=== PATIENT | female | born 1955 | race African-American/Black ===

== ENCOUNTER 2016-09-30 18:21 | Emergency (ER) | payer OTHER ==
[2016-09-30 18:36] VITALS: BP 130/68; PULSE 108; BMI 37.3
[2016-09-30] MEDS ORDERED: ACETAMINOPHEN 325 MG TABLET (FP) PO ONE ×2 (18:38→19:20)
--- NOTE | 2016-09-30 19:20 | PDOC ---
History of Present Illness <Leslie Meadows - Last Filed: 09/30/16 20:42> - History of Present Illness Initial Comments: 09/30/16 20:51 The patient is a 60 year old female with a past medical hx of hypertension who presents to the ED complaining of fever and nausea for a few days. She states she had an episode of vomiting, but denies any abdominal pain. She notes her entire family is sick with similar symptoms. The patient denies cough, SOB, chest pain The patient denies dysuria, frequency Allergies:NKDA Social:Nonsmoker Surgical:None reported PCP: Dr. Michael Montague <Zandra Quintanilla - Last Filed: 09/30/16 20:53> - General Chief Complaint: Blood Pressure Problem Stated Complaint: BP PROBLEM Time Seen by Provider: 09/30/16 19:19 Past History - Past Medical History HTN: Yes - Psycho/Social/Smoking Cessation Hx Anxiety: No Suicidal Ideation: No Smoking Status: No Smoking History: Never smoked Number of Cigarettes Smoked Daily: 0 Hx Alcohol Use: No Drug/Substance Use Hx: No Substance Use Type: None <Leslie Meadows Ami - Last Filed: 09/30/16 20:42> <Zandra Quintanilla - Last Filed: 09/30/16 20:53> - Past Medical History Allergies/Adverse Reactions: Allergies Allergy/AdvReac Type Severity Reaction Status Date / Time No Known Allergies Allergy Verified 09/30/16 18:36 Home Medications: Ambulatory Orders Unobtainable Home Med List 0 dose .ROUTE UTDICT 07/02/13 Naproxen [Naprosyn -] 500 mg PO BID PRN #14 tablet MDD 2 09/08/16 Review of Systems - Review of Systems Able to Perform ROS?: Yes Comments:: 09/30/16 20:52 CONSTITUTIONAL: +Fever. Absent: chills, diaphoresis, generalized weakness, malaise, loss of appetite HEENT: Absent: rhinorrhea, nasal congestion, throat pain, throat swelling, difficulty swallowing, mouth swelling, ear pain, eye pain, visual Changes CARDIOVASCULAR: Absent: chest pain, syncope, palpitations, irregular heart rate, lightheadedness , peripheral edema RESPIRATORY: Absent: cough, shortness of breath, dyspnea with exertion, orthopnea, wheezing, stridor, hemoptysis GASTROINTESTINAL: +Nausea, vomiting. Absent: abdominal pain, abdominal distension, diarrhea, constipation, melena, hematochezia GENITOURINARY: Absent: dysuria, frequency, urgency, hesitancy, hematuria, flank pain, genital pain MUSCULOSKELETAL: Absent: myalgia, arthralgia, joint swelling SKIN: Absent: rash, itching, pallor NEUROLOGIC: Absent: headache, focal weakness or paresthesias, dizziness, unsteady gait, seizure, mental status changes, bladder or bowel incontinence PSYCHIATRIC: Absent: anxiety, depression, suicidal or homicidal ideation, hallucinations. <DwightZandra - Last Filed: 09/30/16 20:53> *Physical Exam - Vital Signs Last Vital Signs Temp Pulse Resp BP Pulse Ox 101.2 F H 108 H 20 130/68 95 09/30/16 18:34 09/30/16 18:34 09/30/16 18:34 09/30/16 18:34 09/30/16 18:34 <Leslie Meadows - Last Filed: 09/30/16 20:42> - Vital Signs Last Vital Signs Temp Pulse Resp BP Pulse Ox 97.9 F 108 H 20 130/68 95 09/30/16 20:37 09/30/16 18:34 09/30/16 18:34 09/30/16 18:34 09/30/16 18:34 - Physical Exam Comments: 09/30/16 20:53 GENERAL: Well developed, well nourished. Awake and alert. No acute distress. HEENT: Normocephalic, atraumatic. PERRLA, EOMI. No conjunctival pallor. Sclera are non- icteric. Moist mucous membranes. Oropharynx is clear. NECK: Supple. Full ROM. No JVD. Carotid pulses 2+ and symmetric, without bruits. No thyromegaly. No lymphadenopathy. CARDIOVASCULAR: +Tachycardic. Regular rhythm. No murmurs, rubs, or gallops. Distal pulses are 2 + and symmetric. PULMONARY: No evidence of respiratory distress. Lungs clear to auscultation bilaterally. No wheezing, rales or rhonchi. ABDOMINAL: Soft. Non-tender. Non-distended. No rebound or guarding. No organomegaly. Normoactive bowel sounds. MUSCULOSKELETAL Normal range of motion at all joints. No bony deformities or tenderness. No CVA tenderness. EXTREMITIES: No cyanosis. No clubbing. No edema. No calf tenderness. SKIN: Warm and dry. Normal capillary refill. No rashes. No jaundice. NEUROLOGICAL: Alert, awake, appropriate. Cranial nerves 2-12 intact. No deficits to light touch and temperature in face, upper extremities and lower extremities. No motor deficits in the in face, upper extremities and lower extremities. Normoreflexic in the upper and lower extremities. Normal speech. PSYCHIATRIC: Cooperative. Good eye contact. Appropriate mood and affect. <Zandra Quintanilla - Last Filed: 09/30/16 20:53> ED Treatment Course - Medications Given in the ED: ED Medications Discontinued Medications Generic Name Dose Route Start Last Admin Trade Name Freq PRN Reason Stop Dose Admin Acetaminophen 650 mg 09/30/16 18:38 09/30/16 18:38 Tylenol - PO 09/30/16 18:39 650 mg NOW ONE Administration <Leslie Meadows - Last Filed: 09/30/16 20:42> - ADDITIONAL ORDERS Additional order review: 09/30/16 19:21 Influenza Types A,B Antigen (CHARLES) - Final Nasopharyngeal Swab - Final - Medications Given in the ED: ED Medications Discontinued Medications Generic Name Dose Route Start Last Admin Trade Name Freq PRN Reason Stop Dose Admin Acetaminophen 650 mg 09/30/16 18:38 09/30/16 18:38 Tylenol - PO 09/30/16 18:39 650 mg NOW ONE Administration Acetaminophen 650 mg 09/30/16 19:20 09/30/16 19:21 Tylenol - PO 09/30/16 19:21 Not Given ONCE ONE <Zandra Quintanilla - Last Filed: 09/30/16 20:53> *DC/Admit/Observation/Transfer <Leslie Meadows - Last Filed: 09/30/16 20:42> - Attestations Scribe Attestion: 09/30/16 20:52 Documentation prepared by Zandra Quintanilla, acting as medical records custodian for Leslie Meadows MD/DO. <Zandra Quintanilla - Last Filed: 09/30/16 20:53> Diagnosis at time of Disposition: Fever Qualifiers: Fever type: other Qualified Code(s): R50.81 - Fever presenting with conditions classified elsewhere Vomiting Qualifiers: Vomiting type: unspecified Vomiting Intractability: non-intractable Nausea presence: unspecified Qualified Code(s): R11.10 - Vomiting, unspecified - Discharge Dispostion Disposition: HOME Condition at time of disposition: Stable - Referrals Referrals: Michael Montague MD [Primary Care Provider] - - Patient Instructions Printed Discharge Instructions: DI for Fever (Symptom) -- Adult, DI for Vomiting -- Adult
[2016-09-30 20:38] VITALS: TEMP 97.9
== END 2016-09-30 21:04 | disposition home or self-care (01) ==
LOC: JER 18:21
DX: R11.10 Vomiting, unspecified (principal); I10 Essential (primary) hypertension
CPT/HCPCS: 87804; 99281-25

== ENCOUNTER → 2017-10-24 | Day surgery (SDC) | payer OTHER ==
--- NOTE | 2017-10-25 16:36 | PATH ---
Cytology Non-Gynecological Report Patient Name: GLORIA CASTRO [facility]. Rec. #: [id number] /Age/Gender: 1955 (Age: 61) / F Account: [id number] Location: RADIOLOGY Taken: 10/24/2017 Received: 10/24/2017 Reported: 10/25/2017 Physicians: Michael Licea M.D. Randall Owen, M.D. Specimen(s) Received THYROID FNA Clinical History Right thyroid nodule 1.32 x 1.03 x 0.87 cm Final Diagnosis THYROID, RIGHT, FINE NEEDLE ASPIRATION: SATISFACTORY FOR EVALUATION. BETHESDA CLASS II: BENIGN. CYTOLOGIC FINDINGS ARE CONSISTENT WITH A BENIGN FOLLICULAR NODULE. FEW FOLLICULAR CELLS WITH FOCAL METAPLASTIC CHANGE AND SCANT COLLOID PRESENT. Electronically Signed Betty Torres M.D. Gross Description Received are eight direct smears, four of which are air-dried and Diff-Quik stained, and four of which are alcohol fixed and Pap stained. Also received is 20 ml of bloody formalin from which one cellblock is prepared.
== END | disposition home or self-care (01) ==
LOC: JRADIR 09:36
PROVIDERS: ATTEND Otolaryngology Facial Plastic Surgery
PROC: 0G923ZX Drainage of Left Adrenal Gland, Percutaneous Approach, Diagnostic (ICD-10-PCS; principal; 2017-10-24)
DX: E04.1 Nontoxic single thyroid nodule (principal)
CPT/HCPCS: 10022; 76942; 88173; 88305-TC

== ENCOUNTER 2020-08-16 06:03 | Day surgery (SDC) | payer OTHER ==
[2020-08-15 12:44] VITALS: BMI 38.4
[2020-08-16] MEDS ORDERED: SUCCINYLCHOLINE CHLORIDE 200 MG/10 ML SYRINGE ONE (10:36)
[2020-08-16] MEDS ORDERED: MIDAZOLAM HCL 2 MG/2 ML SINGLE DOSE VIAL ONE (10:36)
[2020-08-16] MEDS ORDERED: PROPOFOL 20 ML ONE ×2 (10:36)
[2020-08-16] MEDS ORDERED: LIDOCAINE 1%/EPI 1:100000 (50 ML MULTI DOSE VIAL) ONE (10:37)
[2020-08-16] MEDS ORDERED: VASOPRESSIN 20 UNITS/ML VIAL IV ONE (10:37)
[2020-08-16] MEDS ORDERED: ceFAZolin SODIUM 1 GM VIAL IVPB ONE (11:15)
[2020-08-16] MEDS ORDERED: LIDOCAINE 1%/EPI 1:100000 (20 ML MULTI DOSE VIAL) IJ ONE (11:25)
[2020-08-16] MEDS ORDERED: ELECTROLYTE-148 SOLN 1,000 ML IV SCH (11:45)
[2020-08-16] MEDS ORDERED: ONDANSETRON 4 MG/2 ML VIAL IVPUSH PRN (12:34)
[2020-08-16] MEDS ORDERED: oxyCODONE HCL 5 MG TABLET PO PRN ×2 (12:34)
[2020-08-16] MEDS ORDERED: LACTATED RINGERS SOLUTION 1,000 ML IV SCH (12:45)
[2020-08-16 13:35] VITALS: TEMP 96.4
[2020-08-16] MEDS ORDERED: oxyCODONE HCL 5 MG TABLET PO ONE (13:36)
[2020-08-16] MEDS ORDERED: oxyCODONE HCL 5 MG TABLET ONE (13:38)
[2020-08-16 14:47] VITALS: BP 159/90; PULSE 60
== END 2020-08-16 15:15 | disposition home or self-care (01) ==
LOC: JASU-SURG 06:03
PROVIDERS: ATTEND Urology
PROC: 0TSD0ZZ Reposition Urethra, Open Approach (ICD-10-PCS; principal; 2020-08-16 11:00)
DX: T83.711A Erosion of implanted vaginal mesh to surrounding organ or tissue, initial encounter (principal); N39.3 Stress incontinence (female) (male)
CPT/HCPCS: 88300-TC; 88304-TC; 94760